=== PATIENT | female | born 1955 | race Caucasian/White ===

== ENCOUNTER 2016-08-29 17:05 | Inpatient (IN) | payer OTHER ==
[~2016-08-29] VITALS: Ht 165.1 cm; Wt 113.4 kg
[2016-08-29 19:35] LABS: BASOPHIL % 0.3 % (0-2); PLATELET COUNT 290 x10^3mcL (130-400)
[2016-08-29 19:44] LABS: CALCIUM 8.7 mg/dL (8.5-10.1); CHLORIDE SERUM 102 mmol/L (98-107); CREATININE SERUM 0.8 mg/dL (0.6-1.0); GFR1 > 60 mL/min; GLUCOSE SERUM 123 mg/dL (74-106); POTASSIUM SERUM 3.8 mmol/L (3.5-5.1); SODIUM SERUM 139 mmol/L (136-145)
[2016-08-29 19:45] LABS: RED CELL DISTRIBUTION WIDTH 17.2 % (11.5-14.5)
[2016-08-29 19:49] LABS: ALBUMIN 2.8 g/dL (3.4-5.0); ALKALINE PHOSPHATASE 102 U/L (46-116); ALT/SGPT 37 U/L (14-59); AST/SGOT 26 U/L (15-37); BILIRUBIN TOTAL 0.4 mg/dL (0.20-1.00); LIPASE 97 IU/L (73-393); TOTAL PROTEIN, SERUM 6.8 g/dL (6.4-8.2)
[2016-08-29] MEDS ORDERED: SIMVASTATIN40 M1 PO (21:12)
[2016-08-29] MEDS ORDERED: ENALAPRIL MALEAT5 MG PO (21:13)
[2016-08-29] MEDS ORDERED: ASPIR 8181 MG PO (21:13)
[2016-08-29 21:38] LABS: CHOLESTEROL/HDL RATIO 2.8
[2016-08-29 21:42] LABS: T3 TOTAL 0.82 ng/mL
[2016-08-29 21:45] LABS: FREE T4 1.08 ng/dL (0.76-1.46); FREE THYROXINE INDEX 2.3 ug/dL (1.4-4.5)
[2016-08-29 22:09] LABS: UA SPECIFIC GRAVITY 1.025 (1.005-1.035); microscopic required? YES; urine erythrocyte NEGATIVE (NEGATIVE)
[2016-08-29 22:49] VITALS: BP 123/70
[2016-08-29 22:55] VITALS: Ht 165.1 cm; Wt 113.4 kg
[2016-08-30 06:44] VITALS: BP 106/69
[2016-08-30 06:52] LABS: BASOPHIL % 0.6 % (0-2)
[2016-08-30 07:22] LABS: RED CELL DISTRIBUTION WIDTH 17.4 % (11.5-14.5)
[2016-08-30 07:23] LABS: PLATELET COUNT 221 x10^3mcL (130-400)
[2016-08-30 09:00] LABS: CALCIUM 8.1 mg/dL (8.5-10.1); CARBON DIOXIDE 28.9 mmol/L (21-32); CHLORIDE SERUM 105 mmol/L (98-107); CREATININE SERUM 0.7 mg/dL (0.6-1.0); GFR1 > 60 mL/min; GLUCOSE SERUM 117 mg/dL (74-106); MAGNESIUM 1.9 mg/dL (1.8-2.4); PHOSPHOROUS 3.6 mg/dL (2.5-4.9); SODIUM SERUM 139 mmol/L (136-145)
[2016-08-30 10:40] VITALS: BP 101/63
[2016-08-30 14:40] VITALS: BP 95/59
[2016-08-30 17:45] VITALS: BP 91/52
[2016-08-30 22:05] VITALS: BP 106/66
[2016-08-31 05:57] VITALS: BP 99/64
[2016-08-31 06:37] LABS: CALCIUM 7.9 mg/dL (8.5-10.1); CARBON DIOXIDE 26.1 mmol/L (21-32); CHLORIDE SERUM 107 mmol/L (98-107); CREATININE SERUM 0.7 mg/dL (0.6-1.0); GFR1 > 60 mL/min; GLUCOSE SERUM 97 mg/dL (74-106); MAGNESIUM 1.9 mg/dL (1.8-2.4); PHOSPHOROUS 2.9 mg/dL (2.5-4.9); POTASSIUM SERUM 3.7 mmol/L (3.5-5.1); SODIUM SERUM 141 mmol/L (136-145)
[2016-08-31 07:02] LABS: BASOPHIL % 0.4 % (0-2); PLATELET COUNT 247 x10^3mcL (130-400)
[2016-08-31 07:06] LABS: RED CELL DISTRIBUTION WIDTH 16.7 % (11.5-14.5)
[2016-08-31 10:15] VITALS: BP 106/59
[2016-08-31 13:18] VITALS: BP 110/66
[2016-08-31 17:28] VITALS: BP 119/65
[2016-08-31 22:34] VITALS: BP 110/75
[2016-09-01 06:32] VITALS: BP 132/71
[2016-09-01 10:29] VITALS: BP 111/63
[2016-09-01 18:05] VITALS: BP 117/65
[2016-09-01 21:20] VITALS: BP 104/52
[2016-09-02 05:53] VITALS: BP 109/63
[2016-09-02 06:22] LABS: BASOPHIL % 0.3 % (0-2); PLATELET COUNT 282 x10^3mcL (130-400)
[2016-09-02 06:24] LABS: CALCIUM 8.1 mg/dL (8.5-10.1); CARBON DIOXIDE 28.7 mmol/L (21-32); CHLORIDE SERUM 107 mmol/L (98-107); CREATININE SERUM 0.6 mg/dL (0.6-1.0); GFR1 > 60 mL/min; GLUCOSE SERUM 99 mg/dL (74-106); MAGNESIUM 1.8 mg/dL (1.8-2.4); PHOSPHOROUS 3.8 mg/dL (2.5-4.9); POTASSIUM SERUM 3.6 mmol/L (3.5-5.1); SODIUM SERUM 140 mmol/L (136-145)
[2016-09-02 06:31] LABS: RED CELL DISTRIBUTION WIDTH 17.5 % (11.5-14.5)
[2016-09-02 10:42] VITALS: BP 122/100
[2016-09-02] MEDS ORDERED: COL100 PO (13:42)
[2016-09-02] MEDS ORDERED: PRI20 PO (13:43)
[2016-09-02] MEDS ORDERED: LAC PO (13:46)
[2016-09-02] MEDS ORDERED: AUG500 PO (13:46)
[2016-09-02 13:49] VITALS: BP 122/100
== END 2016-09-02 15:17 | disposition home or self-care (01) | DRG 244 ==
LOC: ED 17:05 → MU 20:46 → DU 20:46 → MU 08-31 23:10
PROVIDERS: Emergency Medicine; Family Medicine; Internal Medicine Gastroenterology; ADMIT Family Medicine
PROC: 0DB68ZX Excision of Stomach, Via Natural or Artificial Opening Endoscopic, Diagnostic (ICD-10-PCS; principal; 2016-09-02 08:00)
DX: K57.20 Diverticulitis of large intestine with perforation and abscess without bleeding (principal); N17.0 Acute kidney failure with tubular necrosis; E43 Unspecified severe protein-calorie malnutrition; Z68.41 Body mass index [BMI] 40.0-44.9, adult; E66.01 Morbid (severe) obesity due to excess calories; K22.10 Ulcer of esophagus without bleeding; K80.20 Calculus of gallbladder without cholecystitis without obstruction; I10 Essential (primary) hypertension; R73.03 Prediabetes; D64.9 Anemia, unspecified; E02 Subclinical iodine-deficiency hypothyroidism; K44.9 Diaphragmatic hernia without obstruction or gangrene; I69.334 Monoplegia of upper limb following cerebral infarction affecting left non-dominant side; E78.5 Hyperlipidemia, unspecified; Z87.891 Personal history of nicotine dependence; Z86.73 Personal history of transient ischemic attack (TIA), and cerebral infarction without residual deficits
CPT/HCPCS: 43235; 83880; 84439; 87046; 87046-59; J0780; J1200; J1610; J1644; J1885; J1956; J2250; J2270; J2310; J2405; J3010; J3490; J7030; Q0092

== ENCOUNTER 2018-12-14 09:38 | Emergency (ER) | payer OTHER ==
[~2018-12-14] VITALS: Ht 162.6 cm; Wt 106.6 kg
[~2018-12-14 09:38] MED LIST: ASPIR 8181 MG PO; AUG500 PO; COL100 PO; ENALAPRIL MALEAT5 MG PO; LAC PO; PRI20 PO; SIMVASTATIN40 M1 PO
[2018-12-14 09:42] VITALS: Ht 162.6 cm; Wt 106.6 kg
[2018-12-14 12:40] VITALS: BP 133/85
== END 2018-12-14 12:40 | disposition home or self-care (01) ==
LOC: ED 09:38
DX: M17.12 Unilateral primary osteoarthritis, left knee (principal); I10 Essential (primary) hypertension; E78.00 Pure hypercholesterolemia, unspecified; Z86.73 Personal history of transient ischemic attack (TIA), and cerebral infarction without residual deficits; Z98.890 Other specified postprocedural states
CPT/HCPCS: Q0092

== ENCOUNTER 2020-05-14 20:01 | Emergency (ER) | payer OTHER, SELFPAY ==
[~2020-05-14] VITALS: Ht 165.1 cm; Wt 95.3 kg
[2020-05-14 20:03] VITALS: BP 135/95; Ht 165.1 cm; Wt 95.3 kg
== END 2020-05-14 23:57 | disposition home or self-care (01) ==
LOC: ED 20:01
DX: U07.1 COVID-19 (principal); I10 Essential (primary) hypertension; E78.00 Pure hypercholesterolemia, unspecified; Z86.73 Personal history of transient ischemic attack (TIA), and cerebral infarction without residual deficits
CPT/HCPCS: U0003